=== PATIENT | male | born 1960 | race Caucasian/White ===

== ENCOUNTER 2018-09-02 06:41 | Day surgery (SDC) | payer OTHER ==
[2018-09-02] MEDS ORDERED: MIDAZOLAM 1 MG/ML 2 ML INJ (08:11)
[2018-09-02] MEDS: POLYMYXIN/BACITRACIN 1L IRRIG (08:41)
[2018-09-02] MEDS ORDERED: GLYCOPYRROLATE 0.4 MG INJ (09:01)
[2018-09-02] MEDS ORDERED: NEOSTIGMINE 3 MG/3 ML SYRINGE (09:01)
[2018-09-02] MEDS ORDERED: CEFAZOLIN 1 GM INJ (09:01)
[2018-09-02] MEDS ORDERED: PROPOFOL 20 ML (09:01)
[2018-09-02] MEDS ORDERED: LIDOCAINE 2% (SDV) 5 ML INJ (09:01)
[2018-09-02] MEDS ORDERED: ROCURONIUM 50 MG INJ (09:01)
[2018-09-02] MEDS ORDERED: ONDANSETRON 4 MG INJ (09:01)
[2018-09-02] MEDS ORDERED: KETOROLAC 30 MG INJ (09:09)
[2018-09-02] MEDS ORDERED: FENTAnyl 50 MCG/ML VIAL (09:11)
[2018-09-02] MEDS: BUPIVACAINE 0.25% (MPF) 30 ML INJ (09:20)
[2018-09-02] MEDS ORDERED: MEPERIDINE 25 MG INJ IV (09:30)
[2018-09-02] MEDS ORDERED: FENTAnyl 50 MCG/ML VIAL IV (09:30)
[2018-09-02] MEDS ORDERED: HYDROCODONE/APAP (5/325) TAB PO (09:30)
[2018-09-02] MEDS ORDERED: HYDROmorphONE 1 MG/5 ML IV SYRINGE IV (09:30)
[2018-09-02] MEDS ORDERED: DIPHENHYDRAMINE 50 MG INJ IV (09:30)
[2018-09-02] MEDS ORDERED: ONDANSETRON 4 MG INJ IV (09:30)
[2018-09-02] MEDS: HYDROmorphONE 1 MG/5 ML IV SYRINGE IV (09:39)
== END 2018-09-02 11:00 | disposition home or self-care (01) ==
LOC: SDS 06:41
DX: K43.6 Other and unspecified ventral hernia with obstruction, without gangrene (principal)
CPT/HCPCS: 49653